=== PATIENT | male | born 1985 | race Caucasian/White ===

== ENCOUNTER → 2016-07-07 | Outpatient (CLI) | payer BC ==
[2016-07-07 09:37] LABS: CHLORIDE,CL 108 mmol/L (98-110); SODIUM,NA 141 mmol/L (136-146)
== END ==
LOC: MW.CHFP 08:53
PROVIDERS: ATTEND Family Medicine
DX: E88.81 Metabolic syndrome and other insulin resistance (principal); R73.03 Prediabetes; E78.5 Hyperlipidemia, unspecified
CPT/HCPCS: 36415; 80053; 80061; 83036; 84443

== ENCOUNTER 2016-09-06 10:20 | Day surgery (SDC) | payer BC ==
[~2016-09-06 10:20] MED LIST: EPINEPHrine 1:1000 1 MG/ML SDV ONE; Oxymetazoline 0.05% Nasal Spray 15 ML Bottle ONE
--- NOTE | 2016-09-06 11:35 | PCM.PREANE ---
Preanesthetic Assessment - Anesthesia/Transfusion/Family Hx Anesthesia History: Prior Anesthesia Without Reaction Family History of Anesthesia Reaction: No Transfusion History: No Prior Transfusion(s) - Review of Systems General: No Symptoms Pulmonary: No Symptoms Cardiovascular: No Symptoms Gastrointestinal: No symptoms Neurological: No Symptoms Other: Reports: None - Physical Assessment NPO Status Date: 09/05/16 Height: 1.8 m Weight: 114.759 kg ASA Class: 2 Mental Status: Alert & Oriented x3 Airway Class: Mallampati = 2 Dentition: Reports: Normal Dentition Lungs: Clear to auscultation, Normal respiratory effort Cardiovascular: Regular Rate, Regular Rhythm - Allergies Allergies/Adverse Reactions: Allergies Allergy/AdvReac Type Severity Reaction Status Date / Time Penicillins Allergy Hives Verified 05/12/16 09:23 - Anesthesia Plan Pre-Op Medication Ordered: None - Acknowledgements Anesthesia Type Planned: General Anesthesia Pt an Appropriate Candidate for the Planned Anesthesia: Yes Alternatives and Risks of Anesthesia Discussed w Pt/Guardian: Yes Pt/Guardian Understands and Agrees with Anesthesia Plan: Yes Additional Comments: problem list: obesity BMI=35, maxwell, PreAnesthesia Questionnaire HEENT History: Reports: Allergic Rhinitis Respiratory History: Reports: Other (See Below) Other Respiratory History: possibly sleep apnea Gastrointestinal History: Reports: Other (See Below) Other Gastrointestinal History: occasional heartburn 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: Musculoskeletal History: Psychiatric History: Reports: Anxiety Endocrine/Metabolic History: Reports: Obesity/BMI 30+, Other (See Below) Other Endocrine/Metabolic History: pre diabetic - Past Surgical History Head Surgeries/Procedures: Reports: None HEENT Surgical History: Reports: Naso-Sinus Surgery, Other (See Below) Other HEENT Surgeries/Procedures: hx septoplasty - SUBSTANCE USE Smoking Status *Q: Former Smoker Tobacco Use Within Last Twelve Months: No Recreational Drug Use History: No - HOME MEDS Home Medications: Home Meds Loratadine [Claritin] 10 mg PO DAILY 09/01/16 [History] Sodium Chloride [Saline Nasal [place]] 1 spray NASBOTH ASDIRECTED PRN 09/01/16 [ History] - CURRENT (IN HOUSE) MEDS Current Meds: Current Medications Discontinued Medications Epinephrine HCl (Adrenalin 1:1000) Confirm Administered Dose 1 mg .ROUTE .STK- MED ONE Stop: 09/06/16 07:26 Oxymetazoline HCl (Afrin Original 0.05% Nasal [place]) Confirm Administered Dose 15 ml .ROUTE .[facility]-MED ONE Stop: 09/06/16 07:26
[2016-09-06] MEDS ORDERED: Lidocaine 2% 5 ML SDV ONE (13:24)
[2016-09-06] MEDS ORDERED: Midazolam 1 MG/ML 2 ML SDV ONE (13:25)
[2016-09-06] MEDS ORDERED: Propofol 200 MG/20 ML SDV ONE ×2 (13:25→14:28)
[2016-09-06] MEDS ORDERED: fentaNYL 100 MCG/2 ML SDV ONE (13:25)
[2016-09-06] MEDS ORDERED: fentaNYL 250 MCG/5 ML SDV ONE (13:25)
[2016-09-06] MEDS ORDERED: Neostigmine Methylsulfate 1 MG/ML 5 ML Syringe ONE (13:27)
[2016-09-06] MEDS ORDERED: Rocuronium 10 MG/ML 10 ML Syringe ONE (13:27)
[2016-09-06] MEDS ORDERED: Ondansetron 4 MG/2 ML SDV ONE ×2 (13:27→14:12)
[2016-09-06] MEDS ORDERED: Dexamethasone 4 MG/ML 5 ML MDV ONE (13:27)
--- NOTE | 2016-09-06 13:38 | PCM.OPNOTE ---
- General Post-Op/Procedure Note Anesthesia Provider: Adam Contreras Condition: Good Free Text/Narrative:: Diagnosis: Snoring, sleep apnea, obesity, tonsillar hypertrophy, elongated uvula Procedure: Bilateral tonsillectomy [ CPT 55944], partial uvulectomy [ CPT 29688 (52)] Surgeon: Fatuma Calderon MD Anesthesia: GA Anesthesiologist: Dr Diane MD Date of procedure: 09/06/2016 Indications: Snoring, sleep apnea, obesity, tonsillar hypertrophy, elongated uvula Findings: Lan Gr 3 tonsils with tonsilloliths, elongated uvula Operation Details: An informed consent was obtained. A time out was performed and the patient was brought back to the operating room. General anesthesia was administered with an endotracheal tube. The table was turned 90 away from the anesthesia cart. Patient was appropriately positioned on the operating table. An appropriately sized Tenisha Jeffrey mouth gag was positioned and suspended from a Cifuentes stand. The right tonsil was grasped with a Raphael Brown tonsil holding forceps, upper pole dissected with bipolar forceps; remaining dissection was a combination of bipolar and cold steel. The lower pole was clamped with a negus forceps and ligated with a 2.0 silk tie. The tonsillar fossa was packed with an oxymetazoline 0.05% soaked 2 x 2 gauze. The left tonsil was then similarly dissected and clamped and ligated and fossa packed with an oxymetazoline 0.05% soaked 2 x 2 gauze. Hemostasis was achieved bilaterally with the bipolar cautery at a setting of 10 W. Bilateral fossae were irrigated with warm saline and hemostasis was ensured. Partial uvulectomy was then performed. Length of uvula was measured from tip to the free end of soft palate. Marking was done at 60% of total length from the tip of uvula. The was removed with a monopolar needle at a setting of 20 for cutting and 15 for coagulation. Hemostasis was achieved with coagulation. Specimen was sent away for pathology. Free edge of mucosa was sutured with 3-0 Vicryl. Postnasal space was suctioned clear. This concluded the procedure. Mouth gag was removed the oral cavity was inspected. Lips gums and teeth were intact. Lubricating jelly was applied to the lips. The patient was turned over to the anesthesiologist for recovery. Specimens: bilateral tonsils , excised uvula IV fluids: 1400 ml Blood loss : 45 ml Blood products: nil Disposition: PACU for recovery Follow up: In 1 week.
--- NOTE | 2016-09-06 13:39 | PCM.HPR ---
H & P Addendum review - H & P Addendum Review Date of Original H & P: 08/18/16 Date Reviewed: 09/06/16 Time Reviewed: 13:10 Patient was examined: No Changes
[2016-09-06] MEDS ORDERED: oxyCODONE 5 MG Tab PO PRN (13:52)
[2016-09-06] MEDS ORDERED: Ibuprofen 400 MG Tab PO ONE ×2 (14:10→20:00)
[2016-09-06] MEDS ORDERED: Acetaminophen 325 MG Tab PO ONE ×2 (14:10→19:00)
[2016-09-06] MEDS ORDERED: Scopolamine 1.5 MG Transdermal Patch ONE (14:12)
[2016-09-06] MEDS ORDERED: HYDROmorphone 2 MG/ML Syringe ONE (14:13)
[2016-09-06] MEDS ORDERED: Bupivacaine 0.25% 10 ML SDV ONE (14:39)
[2016-09-06] MEDS ORDERED: fentaNYL 100 MCG/2 ML SDV IVPUSH PRN (15:19)
--- NOTE | 2016-09-06 17:15 | PCM.POSTAN ---
POST ANESTHESIA ASSESSMENT - MENTAL STATUS Mental Status: alert, oriented - RESPIRATORY Respiratory Status: respiratory rate WNL, airway patent, O2 saturation stable, supplemental oxygen - CARDIOVASCULAR CV Status: pulse rate WNL, blood pressure stable - GASTROINTESTINAL GI Status: no symptoms - PAIN Pain Score: 0 - POST OP HYDRATION Hydration Status: adequate & stable
--- NOTE | 2016-09-06 18:26 | PCM48HPAN ---
Post Anesthesia Note - EVALUATION WITHIN 48HRS OF ANESTHETIC Vital Signs in Normal Range: Yes Patient Participated in Evaluation: Yes Respiratory Function Stable: Yes Airway Patent: Yes Cardiovascular Function Stable: Yes Hydration Status Stable: Yes Pain Control Satisfactory: Yes Nausea and Vomiting Control Satisfactory: Yes Mental Status Recovered: Yes - COMMENTS/OBSERVATIONS Free Text/Narrative:: Pt up to the bathroom. Denies any pain or nausea. Pt's significant other states that he is still on 2L and sat's 95%, but Dr. Calderon wants him >90% on RA prior to discharge. Pt stable from an anesthetic point of view - no apparent complications.
[2016-09-06 19:48] VITALS: BP 112/71
== END 2016-09-06 19:55 | disposition home or self-care (01) ==
LOC: MW.SDS 10:20 → MW.ICU 18:03 → MW.SDS 19:55
PROVIDERS: ATTEND Otolaryngology
PROC: 0CTPXZZ Resection of Tonsils, External Approach (ICD-10-PCS; principal; 2016-09-06)
PROC: 0CBNXZZ Excision of Uvula, External Approach (ICD-10-PCS; 2016-09-06)
DX: J35.1 Hypertrophy of tonsils (principal); G47.30 Sleep apnea, unspecified; E66.9 Obesity, unspecified; Q38.6 Other congenital malformations of mouth; J35.8 Other chronic diseases of tonsils and adenoids; M51.36 Other intervertebral disc degeneration, lumbar region; E78.5 Hyperlipidemia, unspecified; E88.81 Metabolic syndrome and other insulin resistance; K42.9 Umbilical hernia without obstruction or gangrene; Z87.891 Personal history of nicotine dependence; Z88.0 Allergy status to penicillin; Z79.899 Other long term (current) drug therapy; Z98.890 Other specified postprocedural states; Z68.35 Body mass index [BMI] 35.0-35.9, adult
CPT/HCPCS: 42140; 42826; 88304; A9270; J1100; J1170; J2250; J2405; J3010; 00170; J0171; J2704

== ENCOUNTER 2020-01-05 14:20 | Emergency (ER) | payer BC ==
[~2020-01-05 14:20] MED LIST changes: -EPINEPHrine 1:1000 1 MG/ML SDV ONE; +Iopamidol 755 MG/ML 50 ML Bottle IV STA; -Oxymetazoline 0.05% Nasal Spray 15 ML Bottle ONE
[2020-01-05] MEDS ORDERED: Lactated Ringers 1,000 ML IV SCH (14:30)
[2020-01-05] MEDS ORDERED: Sodium Chloride 0.9% 10 ML Syringe FLUSH PRN (14:30)
[2020-01-05] MEDS ORDERED: Sodium Chloride 0.9% 10 ML SDV IV PRN (14:30)
[2020-01-05] MEDS ORDERED: Sodium Chloride 0.9% 2.5 ML Syringe FLUSH PRN (14:30)
[2020-01-05 14:41] VITALS: BP 148/94; PULSE 80
--- NOTE | 2020-01-05 15:13 | CR ---
Chest: Portable view of the chest was obtained. Comparison: Prior chest x-ray of 07/04/19. Heart size and mediastinum are normal. Lungs show slight atelectasis or scarring within the left base. Lungs otherwise are clear. Bony structures are grossly intact. Impression: 1. Minimal scarring or atelectasis within left lung base. 2. Nothing acute is appreciated. Diagnostic code #2 This report was dictated in MDT
--- NOTE | 2020-01-05 15:16 | CT ---
CT cervical spine Technique: Multiple axial sections were obtained from above C1 inferiorly to the bottom of T2. Reconstructed sagittal and coronal images were obtained. Findings: Vertebral body heights and disc spaces are maintained. Vertebral bodies and posterior arches are intact with no fracture being seen. No bony central or bony neural foraminal stenosis is seen. No abnormal subluxation is seen. Impression: 1. Nothing acute is appreciated on CT study of the cervical spine. Diagnostic code #1 This report was dictated in MDT
--- NOTE | 2020-01-05 15:29 | CT ---
Head CT Technique: Multiple axial sections through the brain were obtained. Intravenous contrast was not utilized. Comparison: No prior intracranial imaging is available. Findings: Soft tissue swelling and small soft tissue hematoma is seen within the posterior left scalp. Ventricles along the basal cisterns and sulci over the convexities are within normal limits for the patient's age. No abnormal parenchymal densities are seen. No evidence of intracranial hemorrhage. No midline shift or mass-effect is appreciated. Bone window settings were reviewed. Visualized paranasal sinuses and mastoid sinuses show nothing acute. No acute calvarial abnormality is appreciated. Impression: 1. Scalp soft tissue swelling and hematoma posteriorly on the left side. 2. No acute intracranial abnormality is identified. Diagnostic code #2 This report was dictated in MDT
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
[2020-01-05 15:36] LABS: BLOOD UREA NITROGEN,BUN 10 mg/dL (7.0-18.0); CARBON DIOXIDE,CO2 23.5 mmol/L (21.0-32.0); CHLORIDE,CL 105 mmol/L (98-107); GLUCOSE RANDOM 97 mg/dL (74-106); LIPASE 101 U/L (73-393); POTASSIUM,K 3.9 mmol/L (3.5-5.1); SODIUM,NA 142 mmol/L (136-148)
--- NOTE | 2020-01-05 15:52 | CT ---
CT abdomen and pelvis Technique: Multiple axial sections were obtained from above the dome of the diaphragm inferiorly through the pubic symphysis. Intravenous contrast was utilized. Reconstructed coronal and sagittal images were obtained. No oral contrast has been given. Findings: Visualized lung bases show nothing acute. Liver shows no focal parenchymal abnormality. Small amount of normal fat is seen next to the ligamentum teres fissure. Spleen appears within normal limits. Small soft tissue nodule is noted anterior to the spleen compatible with accessory splenic tissue. Adrenal glands show no nodule. Pancreas appears within normal limits. Kidneys show symmetric contrast enhancement. No hydronephrosis or mass is seen. No retroperitoneal adenopathy or mesenteric abnormalities are seen. No pelvic mass or adenopathy is seen. No free fluid or inflammatory change is appreciated. Bone window settings were reviewed. No acute osseous finding is appreciated. Fat-containing umbilical hernia is noted. Impression: 1. Nothing acute is appreciated on CT study of the abdomen and pelvis. 2. Other findings believed to be incidental as described above. Diagnostic code #2 This report was dictated in MDT
--- NOTE | 2020-01-05 15:55 | CT ---
CT chest Technique: Multiple axial sections through the chest were obtained. Intravenous contrast was utilized. Findings: No pericardial thickening is seen. No coronary artery calcification is noted. Aorta shows no aneurysm. No mediastinal hematoma is seen. No axillary adenopathy is appreciated. Lungs are clear with no acute parenchymal contusion. No pleural effusions are seen. No pneumothorax is seen. Bone window settings were reviewed which shows no discrete osseous finding. Impression: 1. Nothing acute is appreciated on CT study of the chest. Diagnostic code #1 This report was dictated in MDT
--- NOTE | 2020-01-05 16:08 | CT ---
CT lumbar spine Technique: Multiple axial sections were obtained through the lumbar spine. Reconstructed coronal images were obtained. Findings: Moderate disc space narrowing noted at L5-S1. Other disc spaces are fairly well preserved. No fracture is appreciated. No abnormal subluxation is seen. No central canal stenosis or neural foraminal stenosis is appreciated. Impression: 1. Disc space narrowing at L5-S1. 2. Nothing acute is appreciated on CT study of the lumbar spine. Diagnostic code #2 This report was dictated in MDT
--- NOTE | 2020-01-05 16:14 | CT ---
CT thoracic spine Technique: Multiple axial sections through the thoracic spine were obtained. Reconstructed coronal and sagittal images were obtained. Findings: Vertebral body heights and disc spaces are maintained. No bony central canal stenosis or neural foraminal stenosis is seen. No vertebral compression deformities or other fracture is seen. No abnormal subluxation is appreciated. Impression: 1. Nothing acute is appreciated on CT study of the thoracic spine. Diagnostic code #1 This report was dictated in MDT
== END 2020-01-05 18:17 | disposition home or self-care (01) ==
LOC: MW.ED 14:23
DX: S06.0X9A Concussion with loss of consciousness of unspecified duration, initial encounter (principal); S39.012A Strain of muscle, fascia and tendon of lower back, initial encounter; S20.212A Contusion of left front wall of thorax, initial encounter; S00.03XA Contusion of scalp, initial encounter; M25.512 Pain in left shoulder; F41.9 Anxiety disorder, unspecified; E66.9 Obesity, unspecified; Z68.33 Body mass index [BMI] 33.0-33.9, adult; Z88.0 Allergy status to penicillin; Z79.899 Other long term (current) drug therapy; V69.9XXA Occupant (driver) (passenger) of heavy transport vehicle injured in unspecified traffic accident, initial encounter
CPT/HCPCS: 36415; 70450; 71045; 71260; 72125; 72132; 74177; 80053; 80305; 80307; 81001; 83690; 85025; 85610; 86850; 86900; 86901; 93005; 96360; 99284; J7120; 72129; 72129-26; 99285; Q9967

== ENCOUNTER 2020-12-23 08:09 | Emergency (ER) | payer BC ==
[2020-12-23] MEDS ORDERED: diphenhydrAMINE 50 MG/ML SDV IVPUSH ONE (09:07)
[2020-12-23] MEDS ORDERED: Haloperidol Lactate 5 MG/ML SDV IM ONE (09:07)
[2020-12-23] MEDS ORDERED: Dextrose 5%-Lactated Ringers 1,000 ML IV SCH (09:15)
[2020-12-23 10:19] LABS: BLOOD UREA NITROGEN,BUN 13 mg/dL (7.0-18.0); CARBON DIOXIDE,CO2 23.9 mmol/L (21.0-32.0); CHLORIDE,CL 105 mmol/L (98-107); GLUCOSE RANDOM 113 mg/dL (74-106); LIPASE 85 U/L (73-393); POTASSIUM,K 4.3 mmol/L (3.5-5.1); SODIUM,NA 140 mmol/L (136-148)
--- NOTE | 2020-12-23 11:29 | EDM.PDOC ---
ED HPI GENERAL MEDICAL PROBLEM - General Chief Complaint: Gastrointestinal Problem Stated Complaint: CANT KEEP FOOD DOWN/DIAG STOMACH ULCERS Time Seen by Provider: 12/23/20 08:23 - History of Present Illness INITIAL COMMENTS - FREE TEXT/NARRATIVE: CHIEF COMPLAINT(S): "I came in to see Gaby and I was diagnosed with ulcers." HISTORY OF PRESENT ILLNESS: This is a 35-year-old man and with a past medical history of hypertension, depression, anxiety who comes to the emergency department with a chief complaint of "I came to see Gaby and I was diagnosed with ulcers." The patient states that for approximately 1 month now he has been experiencing epigastric and left upper quadrant pain and was diagnosed with ulcers. He states that if he got worse he needed to come back. He states that he has an appointment at 2 PM today however he is just sick and tired of this. He states that he is experiencing pain in the left upper and epigastric area of his abdomen which she describes as crampy and sharp. He denies any radiation of the pain but states that he has some associated vomiting with streaks of blood. He denies any hematemesis. He states that he does have some black stool 2 days ago however it is much better now. He denies any hematochezia. He states that he mainly feels like a vibration to his body and cannot hold any of his food down and his head hurts and he cannot sleep. He states that he has not had any cough, runny nose or congestion. He is tirade ibuprofen but that did not help. He states that he also tried cannabis which did not help. His last cannabis use was last night. He denies any history of GI bleed and denies any use of oral anticoagulation. He states that he is undergoing a lot of stress lately because of a divorce. He stopped taking his Prozac, clonazepam, and his hypertension m edication because he was trying to see if those were causing his abdominal pain. He states that he has been on Prilosec for approximately 1 month. He denies any excessive alcohol use. REVIEW OF SYSTEMS: Constitutional: Denies fever, chills. Eyes: Denies eye pain Ears, Nose, Mouth, & Throat: Denies earache Cardiovascular: Denies chest pain Respiratory: Denies shortness of breath Gastrointestinal: Positive for epigastric and left upper quadrant pain, nausea, vomiting, streaks of blood in his vomit, melena. Denies diarrhea, hematochezia, hematemesis. Genitourinary: Denies hematuria Skin:Denies a rash MSK: Denies joint pain Neurological: Positive for headache. Denies blurred vision, numbness, tingling, weakness. Psychiatric: Denies depression PAST MEDICAL HISTORY: As per history of present illness and as reviewed below otherwise noncontributory. SURGICAL HISTORY: As per history of present illness and as reviewed below otherwise noncontributory. SOCIAL HISTORY: As per history of present illness and as reviewed below otherwise noncontributory. FAMILY HISTORY: As per history of present illness and as reviewed below otherwise noncontributory. EXAMINATION OF ORGAN SYSTEMS/BODY AREAS: Constitutional: Blood pressure is 137/88, heart rate 67, respiratory rate 18 with an oxygen saturation 98% on room air. Temperature 36.3 General: Young man who does not appear to be in acute distress. Psychiatric: Appropriate mood and affect. Eyes: No scleral icterus or conjunctival erythema ENMT: Moist mucous membranes. No pharyngeal erythema Cardiovascular: Regular, rate, and rhythm. No gallops, murmurs, or rubs. Bilateral upper extremity pulses symmetric and intact. No peripheral edema. No JVD. Respiratory: Lungs clear to auscultation bilaterally. No wheezes, rales, or rhonchi. Gastrointestinal: Soft, nondistended, tenderness to palpation throughout the entire abdomen however worse in the epigastric and left upper quadrant. Negative Green's and McBurney's. No rebound or guarding. Normal bowel sounds. Genitourinary: No suprapubic tenderness Musculoskeletal: Normal range of motion. Skin: No lesions or abrasions. Neurological: Alert, GCS 15 MEDICAL DECISION MAKING AND COURSE IN THE ED WITH INTERPRETATION/REVIEW OF DIAGNOSTIC STUDIES: This is a 35-year-old man with a past medical history of depression, anxiety, hypertension and recent diagnosis of possible peptic ulcer disease who is on Prilosec who has stopped all of his home medications except Prilosec who comes to the emergency department with continued epigastric, left upper quadrant pain with reported melena who has stable vital signs. At this time given the pain on examination will obtain a CT abdomen pelvis with contrast. Will obtain a laboratory analysis to include CBC, CMP, TSH, and lipase. Differential does include pancreatitis, peptic ulcer disease, gastritis, upper GI bleed. We will provide the patient with Haldol and Benadryl for pain and nausea relief. We will provide the patient 1 L of D5 LR. We will perform a rectal examination. Rectal exam was performed with RN producer director in presence. Stool was brown and guaiac negative. No evidence of hemorrhoids. Laboratory: CBC is unremarkable. CMP is unremarkable. Lipase is normal. TSH is normal. The radiological images were viewed by myself along with reading the report from the radiologist. CT abdomen pelvis with contrast does not reveal any acute intra-abdominal process. There is a small hiatal hernia, diverticulosis and moderate amount of stool. After imaging I did discuss the results with the patient. I did encourage the patient to follow-up with his primary care physician or general surgeon for reevaluation. He was able to tolerate p.o. at this time and had no further questions. He was given strict return precautions. DISPOSITION: The patient was discharged home in stable condition. The patient will follow up with primary care physician or general surgery within 3 to 5 days CONDITION: Fair PROCEDURES: None FINAL IMPRESSION(S)/DIAGNOSES: 1. Acute abdominal pain likely secondary to hiatal hernia versus GERD/PUD versus constipation 2. Diverticulosis Brock Jimenez M.D. Abdominal Pain Score (Numeric/FACES): 8 - Related Data Allergies Allergy/AdvReac Type Severity Reaction Status Date / Time Penicillins Allergy Hives Verified 05/12/16 09:23 Home Meds: Home Meds LORazepam [Ativan] 2 mg PO BID PRN 01/05/20 [History] Naproxen [EC-Naproxen] 500 mg PO BID #10 tablet. 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: Musculoskeletal History: Psychiatric History: Reports: Anxiety Endocrine/Metabolic History: Reports: Obesity/BMI 30+, Other (See Below) Other Endocrine/Metabolic History: pre diabetic - Infectious Disease History Infectious Disease History: Reports: None - Past Surgical History Head Surgeries/Procedures: Reports: None HEENT Surgical History: Reports: Naso-Sinus Surgery, Tonsillectomy, Other (See Below) Other HEENT Surgeries/Procedures: hx septoplasty Social & Family History - Family History Family Medical History: No Pertinent Family History - Caffeine Use Caffeine Use: Reports: None - Recreational Drug Use Recreational Drug Use: No ED ROS GENERAL - Review of Systems Review Of Systems: See Below ED EXAM, GENERAL - Physical Exam Exam: See Below Course - Vital Signs Last Recorded V/S: Last Vital Signs Temp 36.3 C 12/23/20 08:34 Pulse 68 12/23/20 14:17 Resp 16 12/23/20 14:17 BP 150/84 H 12/23/20 14:17 Pulse Ox 99 12/23/20 14:17 - Orders/Labs/Meds Labs: Laboratory Tests 12/23/20 12/23/20 Range/Units 09:30 09:30 WBC 6.10 (4.0-11.0) K/uL RBC 5.17 (4.50-5.90) M/uL Hgb 15.8 (13.0-17.0) g/dL Hct 45.1 (38.0-50.0) % MCV 87.2 (80.0-98.0) fL MCH 30.6 (27.0-32.0) pg MCHC 35.0 (31.0-37.0) g/dL RDW Std Deviation 40.9 (28.0-62.0) fl RDW Coeff of Sheryl 13 (11.0-15.0) % Plt Count 244 (150-400) K/uL MPV 10.80 (7.40-12.00) fL Neut % (Auto) 68.6 (48.0-80.0) % Lymph % (Auto) 22.3 (16.0-40.0) % Callaway % (Auto) 8.9 (0.0-15.0) % Eos % (Auto) 0.0 (0.0-7.0) % Baso % (Auto) 0.2 (0.0-1.5) % Neut # (Auto) 4.2 (1.4-5.7) K/uL Lymph # (Auto) 1.4 (0.6-2.4) K/uL Callaway # (Auto) 0.5 (0.0-0.8) K/uL Eos # (Auto) 0.0 (0.0-0.7) K/uL Baso # (Auto) 0.0 (0.0-0.1) K/uL Nucleated RBC % 0.0 /100WBC Nucleated RBCs # 0 K/uL Sodium 140 (136-148) mmol/L Potassium 4.3 (3.5-5.1) mmol/L Chloride 105 (98-107) mmol/L Carbon Dioxide 23.9 (21.0-32.0) mmol/L BUN 13 (7.0-18.0) mg/dL Creatinine 1.1 (0.8-1.3) mg/dL Est Cr Clr Drug Dosing 100.17 mL/min Estimated GFR (MDRD) > 60.0 ml/min Glucose 113 H (74-106) mg/dL Calcium 9.8 (8.5-10.1) mg/dL Total Bilirubin 0.8 (0.2-1.0) mg/dL AST 19 (15-37) IU/L ALT 28 (14-63) IU/L Alkaline Phosphatase 66 (46-116) U/L Total Protein 7.2 (6.4-8.2) g/dL Albumin 4.4 (3.4-5.0) g/dL Globulin 2.8 (2.6-4.0) g/dL Albumin/Globulin Ratio 1.6 (0.9-1.6) Lipase 85 (73-393) U/L TSH, Ultra Sensitive 0.75 (0.36-3.74) uIU/mL Meds: Medications Discontinued Medications Generic Name Dose Route Start Last Admin Trade Name Ashvinq PRN Reason Stop Dose Admin Diphenhydramine HCl 50 mg 12/23/20 09:07 12/23/20 09:27 Diphenhydramine 50 Mg/Ml Sdv IVPUSH 12/23/20 09:08 50 mg ONETIME ONE Administration Haloperidol Lactate 5 mg 12/23/20 09:07 12/23/20 09:26 Haloperidol Lactate 5 Mg/Ml Sdv IM 12/23/20 09:08 5 mg ONETIME ONE Administration Dextrose/Lactated Ringer's 1,000 mls @ 999 mls/hr 12/23/20 09:15 12/23/20 09:27 Dextrose 5%-Lactated Ringers IV 999 mls/hr ASDIRECTED WILTON Administration Iopamidol 100 ml 12/23/20 11:30 12/23/20 11:31 Iopamidol 755 Mg/Ml 500 Ml Multipack Bottle IVPUSH 12/23/20 11:31 100 ml ONETIME STA Administration Departure - Departure Time of Disposition: 13:58 Disposition: Home, Self-Care 01 Condition: Fair Clinical Impression: Hiatal hernia, Diverticulosis - Discharge Information *PRESCRIPTION DRUG MONITORING PROGRAM REVIEWED*: No *COPY OF PRESCRIPTION DRUG MONITORING REPORT IN PATIENT JAELYN: No Instructions: Hernia, Adult, Diverticulosis Referrals: PCP,Unobtain [Primary Care Provider] - Forms: ED Department Discharge Additional Instructions: You were evaluated today on an emergent basis. At this time your imaging did not reveal any acute findings. It did show evidence of a hiatal hernia which is a hernia that goes around the stomach by your esophagus. This could be the reason your primary care physician is concerned about ulcers. In addition on the CT there was evidence of diverticulosis. These are out pockets of your intestine due to decreased fiber intake. I recommended use fiber daily. In addition there was evidence of some constipation. Please use prune juice, keep hydrated, and use docusate and senna [id number]. If needed you may use a rectal suppository/enema [id number] in order to have a bowel movement. I do recommend you follow-up with primary care physician for referral for a EGD/colonoscopy. Otherwise you can contact general surgery at the number below and discussed need for EGD and colonoscopy. Please return for any new or worsening symptoms such as blood in your vomit, blood in your stool, worsening abdominal pain and fever. [facility] [address] [place] [id number] [address] [facility] - General Surgery Professional [facility] [address] [place] [address], [address] [place] [address] The patient is informed of any results of their evaluation and diagnostic workup and all questions are answered. They are given discharge instructions and return precautions. The patient is stable for discharge. The patient states they understand and agree with the plan and that they will return if their symptoms get worse or if they have any new concerns. The following information is given to patients seen in the emergency department who are being discharged to home. This information is to outline your options f or follow-up care. We provide all patients seen in our emergency department with a follow-up referral. The need for follow-up, as well as the timing and circumstances, are variable depending upon the specifics of your emergency department visit. If you don't have a primary care physician on staff, we will provide you with a referral. We always advise you to contact your personal physician following an emergency department visit to inform them of the circumstance of the visit and for follow-up with them and/or the need for any referrals to a consulting specialist. The emergency department will also refer you to a specialist when appropriate. This referral assures that you have the opportunity for follow-up care with a specialist. All of these measure are taken in an effort to provide you with optimal care, which includes your follow-up. Under all circumstances we always encourage you to contact your private physician who remains a resource for coordinating your care. When calling for follow-up care, please make the office aware that this follow-up is from your recent emergency room visit. If for any reason you are refused follow-up, please contact the [facility] Emergency Department at and asked to speak to the emergency department charge nurse. Sepsis Event Note (ED) - Evaluation Sepsis Screening Result: No Definite Risk
[2020-12-23] MEDS ORDERED: Iopamidol 755 MG/ML 500 ML Multipack Bottle IVPUSH STA (11:30)
--- NOTE | 2020-12-23 13:57 | CT ---
Indication: Left-sided epigastric pain x1 month Technique: Volumetric multidetector CT images of the abdomen and pelvis were obtained after the administration of intravenous contrast. 100 cc Isovue 370 low osmolar intravenous contrast Comparison: None available. Findings: The lung bases are clear. The liver is normal in attenuation without intrahepatic biliary ductal dilatation. The portal vein is patent. The gallbladder is unremarkable without evidence of radiopaque calculus. There is no significant common biliary ductal dilatation or abrupt cut off. The spleen is normal in enhancement and size. There is a small splenule in the left upper quadrant. The stomach and duodenum are grossly unremarkable. The pancreas is normal in enhancement without significant atrophy. The adrenal glands are unremarkable. The kidneys demonstrate preserved corticomedullary differentiation without evidence of obstructive uropathy. There is moderate stool seen throughout the colon with minimal colonic diverticulosis without evidence of diverticulitis. The appendix is not well visualized. There is no significant mesenteric, retroperitoneal, or pelvic sidewall lymph nodes. The aorta is nonaneurysmal. There is no significant atherosclerotic disease appreciated. The solid pelvic viscera are grossly unremarkable. There is no free fluid or free air. There is moderate fat containing umbilical hernia. Mild early degenerative changes of the lumbar spine are appreciated. Otherwise, no acute osseous abnormality. Impression: Moderate stool is seen throughout the colon with minimal colonic diverticulosis but without evidence of diverticulitis. No definite acute intra-abdominal abnormality is appreciated. Small hiatal hernia. Please note that all CT scans at this facility use dose modulation, iterative reconstruction, and/or weight-based dosing when appropriate to reduce radiation dose to as low as reasonably achievable. Dictated by Manjinder Holguin MD @ 12/23/2020 1:55:30 PM (Electronically Signed)
[2020-12-23 14:31] VITALS: BP 150/84; PULSE 68
== END 2020-12-23 14:17 | disposition home or self-care (01) ==
LOC: MW.ED 08:09
DX: K57.30 Diverticulosis of large intestine without perforation or abscess without bleeding (principal); K44.9 Diaphragmatic hernia without obstruction or gangrene; E66.9 Obesity, unspecified; Z68.23 Body mass index [BMI] 23.0-23.9, adult; Z88.0 Allergy status to penicillin
CPT/HCPCS: 74177; 80053; 83690; 84443; 85025; 96372; 96374; 99284; J1200; J1630; J7121; Q9967